=== PATIENT | female | born 1955 | race Caucasian/White ===

== ENCOUNTER 2017-10-24 21:17 | Emergency (ER) | payer BC ==
[~2017-10-24] VITALS: Ht 165.1 cm; Wt 80.7 kg
[2017-10-24 21:35] VITALS: BP 162/103; Ht 165.1 cm; Wt 80.7 kg
== END 2017-10-24 23:33 | disposition home or self-care (01) ==
LOC: ED 21:17
DX: S61.451A Open bite of right hand, initial encounter (principal); R03.0 Elevated blood-pressure reading, without diagnosis of hypertension; I10 Essential (primary) hypertension; E07.9 Disorder of thyroid, unspecified; W54.0XXA Bitten by dog, initial encounter; Y93.89 Activity, other specified; Y92.89 Other specified places as the place of occurrence of the external cause; Y99.8 Other external cause status
CPT/HCPCS: 90715